=== PATIENT | male | born 1995 | race Caucasian/White ===

== ENCOUNTER → 2018-11-04 | Emergency (ER) | payer OTHER ==
[~2018-11-04] VITALS: Ht 175.3 cm; Wt 67.1 kg
[~2018-11-04] MED LIST: KETO10TA2 PO; LEVSIN/SL0.125 MG SL
== END | disposition home or self-care (01) ==
LOC: ER 01:28
DX: J06.9 Acute upper respiratory infection, unspecified (principal); R10.84 Generalized abdominal pain